=== PATIENT | female | born 1955 | race Caucasian/White ===

== ENCOUNTER → 2017-06-20 | Outpatient (CLI) | payer OTHER ==
--- NOTE | 2017-06-21 10:51 | MM ---
Reason for exam: screening (asymptomatic). Last mammogram was performed 1 year and 2 months ago. History: Patient is postmenopausal. Cancelled Right US Needle Biopsy of the right breast, January 15, 2006. Physical Findings: A clinical breast exam by your physician is recommended on an annual basis and results should be correlated with mammographic findings. MG Screening Mammo w CAD Bilateral CC and MLO view(s) were taken. Prior study comparison: April 17, 2016, bilateral MG 3d screening mammo w/cad. November 17, 2014, bilateral MG screening mammo w CAD. October 15, 2012, bilateral digital screening mammo w/CAD. October 03, 2011, bilateral digital screening mammo w/CAD. September 27, 2010, bilateral digital screening mammogram. The breast tissue is heterogeneously dense. This may lower the sensitivity of mammography. No significant changes when compared with prior studies. ASSESSMENT: Negative, BI-RAD 1 RECOMMENDATION: Routine screening mammogram of both breasts in 1 year.
== END | disposition home or self-care (01) ==
LOC: RADMAMWWP 16:26
PROVIDERS: ATTEND Family Medicine
DX: Z12.31 Encounter for screening mammogram for malignant neoplasm of breast (principal)

== ENCOUNTER → 2018-06-26 | Outpatient (CLI) | payer OTHER ==
--- NOTE | 2018-06-28 09:55 | MM ---
Reason for exam: screening (asymptomatic). Last mammogram was performed 1 year ago. History: Patient is postmenopausal. Cancelled Right US Needle Biopsy of the right breast, January 15, 2006. Physical Findings: A clinical breast exam by your physician is recommended on an annual basis and results should be correlated with mammographic findings. MG Screening Mammo w CAD Bilateral CC and MLO view(s) were taken. Prior study comparison: June 20, 2017, bilateral MG screening mammo w CAD. April 17, 2016, bilateral MG 3d screening mammo w/cad. The breast tissue is heterogeneously dense. This may lower the sensitivity of mammography. No significant changes when compared with prior studies. ASSESSMENT: Benign, BI-RAD 2 RECOMMENDATION: Routine screening mammogram of both breasts in 1 year.
== END | disposition home or self-care (01) ==
LOC: RADMAMWWP 08:18
PROVIDERS: ATTEND Family Medicine
DX: Z12.31 Encounter for screening mammogram for malignant neoplasm of breast (principal)
CPT/HCPCS: 77067

== ENCOUNTER → 2019-04-15 | Outpatient (CLI) | payer MEDICARE ==
--- NOTE | 2019-04-16 09:35 | ECHOS ---
Stress Test Results/Findings: Exam Performed: stress echo exercise Exam Date: 04/15/19 Reason for Exam: ABN EKG Height: 5 ft 7 in Weight: 72.575 kg Protocol: STRESS ECHO Stage: 3 Duration of Exercise: 9:00 MINUTES Resting Heart Rate: 51 Resting Blood Pressure: 124/76 Maximum Achieved Heart Rate: 143 Maximum Achieved Blood Pressure: 208/114 85% PMHR: 132 100% PMHR: 155 METS: 10.3 Technologist Comment: Stress Test Results/Findings: Baseline heart rate 51 beats a minute, Baseline blood pressure 124/76. His mercury Patient exercised on a Benja protocol for 9 minutes achieving a peak heart rate of 143 beats a minute Hypertensive response to exercise the peak blood pressure of 208/114 mmHg Baseline twelve-lead ECG showed sinus rhythm with an abnormal ST segment with downsloping ST depression of 1-1.5 mm in the inferior leads and a [address] depression in V5 and V6 Patient exercised on a Benja protocol for [address] segment abnormalities remained but became more prominent peak exercise and into recovery frequent PVCs were noted at peak exercise No sustained arrhythmias noted The baseline 2-D echo images showed normal LV size and systolic function without any definite segmental wall motion abnormalities While at peak exercise there was no wall motion abnormality noted, the inotropic response was not brisk at peak exercise The inotropic response of the myocardium was fairly brisk at recovery Impression Abnormal ECG at baseline Frequent ventricular ectopy at peak exercise Less than brisk augmentation of overall LV contractility at peak exercise The recovery images showed better contract and function I would suggest either perfusion scanning or coronary angiography Additional CC's: Dorene ONEAL
== END | disposition home or self-care (01) ==
LOC: RADNMMAIN 10:13
PROVIDERS: ATTEND Internal Medicine
DX: R94.31 Abnormal electrocardiogram [ECG] [EKG] (principal)
CPT/HCPCS: 93351

== ENCOUNTER → 2019-04-23 | Outpatient (CLI) | payer MEDICARE, OTHER ==
--- NOTE | 2019-04-23 08:06 | MM ---
Reason for exam: clinical finding. Last mammogram was performed 10 months ago. History: Patient is postmenopausal. Cancelled Right US Needle Biopsy of the right breast, January 15, 2006. Physical Findings: Nurse Summary: 2cm nodule in the left breast at 9 o'clock (nurse maura). MG 3D Diag Mammo W/Cad [facility] Bilateral CC and MLO view(s) were taken. Prior study comparison: June 26, 2018, bilateral MG screening mammo w CAD. June 20, 2017, bilateral MG screening mammo w CAD. The breast tissue is extremely dense which could obscure a lesion on mammography. Benign appearing bilateral calcifications. These results were verbally communicated with the patient and result sheet given to the patient on 04/23/19. ASSESSMENT: Incomplete: need additional imaging evaluation, BI-RAD 0 RECOMMENDATION: Ultrasound of the left breast.
--- NOTE | 2019-04-23 08:07 | USB ---
Reason for exam: additional evaluation requested from abnormal screening. History: Patient is postmenopausal. Cancelled Right US Needle Biopsy of the right breast, January 15, 2006. US Breast Limited LT Left limited breast ultrasound including focal area of concern, retroareolar and axilla demonstrates no cystic or solid lesion seen. These results were verbally communicated with the patient and result sheet given to the patient on 04/23/19. ASSESSMENT: Benign, BI-RAD 2 RECOMMENDATION: Return to routine screening mammogram schedule for both breasts. Manage patient on a clinical basis.
--- NOTE | 2019-04-23 10:29 | BD ---
EXAMINATION TYPE: Axial Bone Density DATE OF EXAM: 04/23/2019 COMPARISON: NONE CLINICAL HISTORY: Postmenopausal female Height: 5 FT 6 IN Weight: 157 FRAX RISK QUESTIONS: History of Fracture in Adulthood: YES RISK FACTORS HISTORY OF: Active: YES Postmenopausal woman: AGE 47 Lost more than 2 inches in height since high school: YES MEDICATIONS: Additional Medications: NONE Additional History: EXAM MEASUREMENTS: Bone mineral densitometry was performed using the [employer] System. Bone mineral density as measured about the Lumbar spine is: ----- L1-L4(G/cm2): 0.911 T Score Values are as follows: ----- L2: -2.7 ----- L3: -1.8 ----- L4: -2.0 ----- L1-L4: -2.[address]'S OFFICE Bone mineral density about the R hip (g/cm2): 0.660 Bone mineral density about the L hip (g/cm2): 0.733 T Score values are as follows: -----R Neck: -2.7 -----L Neck: -2.2 -----R Total: -2.8 -----L Total: -2.[address]'S OFFICE IMPRESSION: Osteoporosis (T Score less than -2.5). There is increased fracture risk and therapy is usually indicated based on age. Re-Screen 1-2 years. NOTE: T-SCORE=SD OF THE YOUNG ADULT MEAN.
== END | disposition home or self-care (01) ==
LOC: RADMAMWWP 06:58
PROVIDERS: ATTEND Internal Medicine
DX: M85.80 Other specified disorders of bone density and structure, unspecified site (principal)
CPT/HCPCS: 77080; 77066; 76642; G0279; 77062

== ENCOUNTER → 2020-08-30 | Outpatient (CLI) | payer MEDICARE ==
--- NOTE | 2020-08-30 18:43 | BD ---
EXAMINATION TYPE: Axial Bone Density DATE OF EXAM: 08/30/2020 COMPARISON: NONE CLINICAL HISTORY: Postmenopausal screening Height: 5 FT 6 IN Weight: 147 FRAX RISK QUESTIONS: Alcohol (3 or more units per day): NO Family History (Parent hip fracture): NO Glucocorticoids (More than 3mos): NO (Ex: prednisone, prednisolone, methylprednisolone, dexamethasone, and hydrocortisone). History of Fracture in Adulthood: YES Secondary Osteoporosis: 1. Type 1 Diabetes: NO 2. Hyperthyroidism: NO 3. Menopause before 45: NO 4. Malnutrition: NO 5. Chronic liver disease: NO Rheumatoid Arthritis: NO Current Tobacco Use: NO RISK FACTORS HISTORY OF: Family History of Osteoporosis: YES Active: YES Diet low in dairy products/other sources of calcium: NO Postmenopausal woman: AGE 47 Take estrogen and/or progesterone medications: NONE Lost more than 2 inches in height since high school: YES MEDICATIONS: Additional Medications: NONE CALCIUM AND VIT D Additional History: EXAM MEASUREMENTS: Bone mineral densitometry was performed using the [employer] System. Bone mineral density as measured about the Lumbar spine is: ----- L1-L4(G/cm2): 0.902 T Score Values are as follows: ----- L2: -2.9 ----- L3: -1.8 ----- L4: -2.0 ----- L1-L4: -2.3 Bone mineral density has: DECREASED -0.8 % since study of: 2018 Bone mineral density about the R hip (g/cm2): 0.676 Bone mineral density about the L hip (g/cm2): 0.717 T Score values are as follows: -----R Neck: -2.6 -----L Neck: -2.3 -----R Total: -2.7 -----L Total: -2.1 Bone mineral density has: INCREASED 2.9 % since study of: 2019 IMPRESSION: Osteoporosis (T Score less than -2.5). There is increased fracture risk and therapy is usually indicated based on age. Re-Screen 1-2 years. NOTE: T-SCORE=SD OF THE YOUNG ADULT MEAN.
--- NOTE | 2020-09-01 10:25 | MM ---
Reason for exam: screening (asymptomatic). Last mammogram was performed 1 year and 4 months ago. History: Patient is postmenopausal. Cancelled Right US Needle Biopsy of the right breast, January 15, 2006. Physical Findings: A clinical breast exam by your physician is recommended on an annual basis and results should be correlated with mammographic findings. MG 3D Screening Mammo W/Cad Bilateral CC and MLO view(s) were taken. Prior study comparison: April 23, 2019, bilateral MG 3d diag mammo w/cad [facility]. June 26, 2018, bilateral MG screening mammo w CAD. The breast tissue is heterogeneously dense. This may lower the sensitivity of mammography. There are benign appearing round calcifications in the right breast. There is no discrete abnormality. ASSESSMENT: Benign, BI-RAD 2 RECOMMENDATION: Routine screening mammogram of both breasts in 1 year.
== END | disposition home or self-care (01) ==
LOC: RADMAMWWP 14:15
PROVIDERS: ATTEND Internal Medicine
DX: Z12.31 Encounter for screening mammogram for malignant neoplasm of breast (principal); M81.0 Age-related osteoporosis without current pathological fracture
CPT/HCPCS: 77063; 77067; 77080

== ENCOUNTER → 2022-03-23 | Outpatient (CLI) | payer MEDICARE ==
--- NOTE | 2022-03-24 08:55 | MM ---
Reason for Exam: Screening (asymptomatic). Last mammogram was performed 1 year(s) and 7 month(s) ago. Patient History: Menarche at age 12. First Full-Term at age 21. Postmenopausal. 01/15/2006, Cancelled Right US Needle Biopsy on the right side. Risk Values: Rosa 5 year model risk: 1.5%. NCI Lifetime model risk: 5.0%. Film Views: Bilateral CC views were taken. Bilateral MLO views were taken. Prior Study Comparison: 06/26/2018 Bilateral Screening Mammogram, [facility]. 04/23/2019 Bilateral Diagnostic Mammogram, [facility]. 08/30/2020 Bilateral Screening Mammogram, [facility]. Tissue Density: The breast tissue is heterogeneously dense. This may lower the sensitivity of mammography. Findings: Analyzed By CAD. There is a single benign-appearing round calcification in the right breast redemonstrated. Benign-appearing right axillary lymph nodes are redemonstrated. With increasing indistinct calcifications middle depth upper aspect left breast. Follow-up advised. Overall Assessment: Incomplete: need additional imaging evaluation, BI-RAD 0 Management: Diagnostic Mammogram of the left breast. A clinical breast exam by your physician is recommended on an annual basis and results should be correlated with mammographic findings. FOLLOW UP NOW. Electronically signed and approved by: Lars Leal M.D.
== END | disposition home or self-care (01) ==
LOC: RADMAMWWP 14:48
PROVIDERS: ATTEND Family Medicine
DX: Z12.31 Encounter for screening mammogram for malignant neoplasm of breast (principal)
CPT/HCPCS: 77063; 77067

== ENCOUNTER → 2022-03-29 | Outpatient (CLI) | payer MEDICARE ==
--- NOTE | 2022-03-29 16:34 | MM ---
Reason for Exam: Additional evaluation requested from abnormal screening. Last screening mammogram was performed less than 1 month ago. Patient History: Menarche at age 12. First Full-Term at age 21. Postmenopausal. 01/15/2006, Cancelled Right US Needle Biopsy on the right side. Risk Values: Rosa 5 year model risk: 1.5%. NCI Lifetime model risk: 5.0%. Film Views: Left CC views were taken. Left MLO views were taken. Prior Study Comparison: 04/23/2019 Bilateral Diagnostic Mammogram, [facility]. 08/30/2020 Bilateral Screening Mammogram, [facility]. 03/23/2022 Bilateral MG 3D screening mammo w/cad, [facility]. Tissue Density: Left: There are scattered fibroglandular densities. Findings: Analyzed By CAD. There are some coarse calcifications in the upper-outer aspect of the left breast. Just anterior to these calcifications are some faint punctate calcifications which are grouped. These are upper outer aspect middle left breast. Biopsy is recommended. Overall Assessment: Suspicious, BI-RAD 4 Management: Stereotactic Core Biopsy of the left breast. Electronically signed and approved by: Demond Sher D.O. Radiologis
== END | disposition home or self-care (01) ==
LOC: RADMAMWWP 14:48
PROVIDERS: ATTEND Family Medicine
DX: R92.8 Other abnormal and inconclusive findings on diagnostic imaging of breast (principal)
CPT/HCPCS: 77065; G0279; 77061

== ENCOUNTER → 2022-04-05 | Day surgery (SDC) | payer MEDICARE ==
[2022-04-05 08:49] VITALS: RESP 16
[2022-04-05 09:52] VITALS: BP 150/89; PULSE 63; TEMP 98.1
--- NOTE | 2022-04-10 09:23 | MM ---
Risk Values: Rosa 5 year model risk: 1.5%. NCI Lifetime model risk: 5.0%. Prior Study Comparison: 08/30/2020 Bilateral Screening Mammogram, [facility]. 03/23/2022 Bilateral MG 3D screening mammo w/cad, [facility]. 03/29/2022 Left MG 3D work up w/cad , [facility]. Pathology Description: Approach: CC FA Needle Type: Eviva Cores: 12 Skin Nicks: 1 Gauge: 9 The procedure of stereotactic guided core biopsy was explained to the patient. Benefits, alternatives, and risks were discussed. An informed consent was then obtained. The shortness pathway for biopsy was chosen. Shortness pathway was superior approach. I performed the localization. A vacuum assisted biopsy gun was used to obtain multiple core samples. The patient tolerated the procedure well without any immediate complication. The patient was kept in the radiology department for short stay after the procedure and then discharged home in stable condition. Targeted calcifications are identified in specimen mammogram. Post biopsy mammogram shows the clip to appear in satisfactory position relative to the targeted area of concern on the preprocedure images. Impression: SUCCESSFUL, UNCOMPLICATED STEREOTACTIC GUIDED CORE BIOPSY OF AREA OF CONCERN IN THE left BREAST. Pathology Results: Result: Benign, Fibrocystic change. LEFT BREAST, STEREOTACTIC CORE BIOPSY: Fibrocystic changes including cysts with calcifications, columnar cell change, apocrine metaplasia and fibrosis. Overall Assessment: Benign Management: Diagnostic Mammogram of the left breast in 6 months. Electronically signed and approved by: Daniel Beltran M.D. Radiologis
== END ==
LOC: RADMAMWWP 08:17
PROVIDERS: ATTEND Family Medicine
DX: N60.12 Diffuse cystic mastopathy of left breast (principal); N60.82 Other benign mammary dysplasias of left breast
CPT/HCPCS: 19081; 88305; A4648; J2001

== ENCOUNTER → 2023-05-10 | Outpatient (CLI) | payer MEDICARE, OTHER ==
--- NOTE | 2023-05-10 10:01 | MM ---
Reason for Exam: Follow-up at short interval from prior study. Last mammogram was performed 1 year(s) and 2 month(s) ago. Patient History: Menarche at age 12. First Full-Term at age 21. Postmenopausal. 04/05/2022, Benign MG stereo VAD BX LT on the left side. 01/15/2006, Cancelled Right US Needle Biopsy on the right side. Risk Values: Rosa 5 year model risk: 1.8%. NCI Lifetime model risk: 5.6%. Tissue Density: The breast tissue is heterogeneously dense. This may lower the sensitivity of mammography. Findings: Analyzed By CAD. Benign-appearing calcifications within the right breast. Biopsy clip within the left breast. No new suspicious masses or group of calcifications within either breast. No architectural distortion within either breast. Overall Assessment: Incomplete: need additional imaging evaluation, BI-RAD 0 Management: Diagnostic Breast Ultrasound of the left breast. A clinical breast exam by your physician is recommended on an annual basis and results should be correlated with mammographic findings. This exam should not preclude additional follow-up of suspicious palpable abnormalities. Results were given to the patient verbally at the time of exam. Note on Rosa scores and lifetime risk: 1. A Rosa score greater than 3% is considered moderate risk. If this is the case, consider specialist referral to assess eligibility for a risk reducing agent. If overall lifetime risk for the development of breast cancer is 20% or higher, the patient may qualify for future screening with alternating mammogram and breast MRI. Electronically signed and approved by: Duke Coffey D.O.
--- NOTE | 2023-05-10 10:19 | USB ---
Reason for Exam: Follow-up at short interval from prior study. Patient History: Menarche at age 12. First Full-Term at age 21. Postmenopausal. 04/05/2022, Benign MG stereo VAD BX LT on the left side. 01/15/2006, Cancelled Right US Needle Biopsy on the right side. Risk Values: Rosa 5 year model risk: 1.8%. NCI Lifetime model risk: 5.6%. Technique: Method: Targeted. Prior Study Comparison: 08/30/2020 Bilateral Screening Mammogram, [facility]. 03/23/2022 Bilateral MG 3D screening mammo w/cad, [facility]. 03/29/2022 Left MG 3D work up w/cad LT, [facility]. Findings: The upper outer quadrant of the left breast, the axilla of the left breast and the retroareolar of the left breast were scanned. Targeted ultrasound of the left breast at site of biopsy 5 cm from the nipple from 12-3 o'clock was performed. Initial evaluation of the maxilla was performed. No solid or cystic lesion was identified. There is some mild ductal ectasia at the nipple. Overall Assessment: Benign, BI-RAD 2 Management: Screening Mammogram of both breasts in 1 year. A clinical breast exam by your physician is recommended on an annual basis and results should be correlated with mammographic findings. This exam should not preclude additional follow-up of suspicious palpable abnormalities. Results were given to the patient verbally at the time of exam. Electronically signed and approved by: Duke Coffey D.O.
== END | disposition home or self-care (01) ==
LOC: RADMAMWWP 09:30
DX: R92.8 Other abnormal and inconclusive findings on diagnostic imaging of breast (principal); Z78.0 Asymptomatic menopausal state
CPT/HCPCS: 77062; 77066

== ENCOUNTER → 2023-06-05 | Outpatient (CLI) | payer MEDICARE ==
--- NOTE | 2023-06-05 15:14 | US ---
EXAMINATION TYPE: US venous doppler duplex UE RT DATE OF EXAM: 06/05/2023 COMPARISON: NONE CLINICAL INDICATION: Female, 68 years old with history of R22.31 SWELLING RUE; lump right elbow SIDE PERFORMED: Right arm FINDINGS: Grayscale, color doppler, spectral doppler imaging performed of the deep veins of the upper extremiti es. There is normal flow, compressibility and vascular waveforms. Right Arm: Negative for DVT. Lump at the elbow corresponds to the brachial artery; scanned left for c omparison. IMPRESSION: 1. No evidence for DVT within the right upper extremity. 2. The graphic design specialist indicates that the brachial artery is seen while scanning at the site of patient's lump at the elbow.
== END | disposition home or self-care (01) ==
LOC: RADUSWWP 14:23
PROVIDERS: ATTEND Internal Medicine Geriatric Medicine
DX: R22.31 Localized swelling, mass and lump, right upper limb (principal)

== ENCOUNTER → 2023-06-21 | Outpatient (CLI) | payer MEDICARE ==
--- NOTE | 2023-06-21 18:30 | XR ---
EXAMINATION TYPE: XR ribs bilat w pa chest xray DATE OF EXAM: 06/21/2023 COMPARISON: NONE HISTORY: Pain TECHNIQUE: Single view of the chest 8 views of the bilateral attending window and ribs are submitted . FINDINGS: The lungs are clear. No Evidence for pneumothorax. No evidence for focal contusion. Medi astinal structures are midline. Evaluation of the ribs fails to demonstrate evidence for displaced r ib fracture or secondary sign of rib fracture. IMPRESSION: Negative study
== END | disposition home or self-care (01) ==
LOC: RADXRMAIN 16:30
PROVIDERS: ATTEND Family Medicine
DX: S20.20XA Contusion of thorax, unspecified, initial encounter (principal); X58.XXXA Exposure to other specified factors, initial encounter
CPT/HCPCS: 71111

== ENCOUNTER → 2024-03-26 | Outpatient (CLI) | payer MEDICARE ==
--- NOTE | 2024-03-27 00:28 | XR ---
EXAMINATION TYPE: XR wrist complete RT DATE OF EXAM: 03/26/2024 COMPARISON: None HISTORY: Pain TECHNIQUE: 4 view right wrist FINDINGS: No acute fractures or dislocations evident. Joint spaces are preserved. Soft tissues appear within normal limits. If there is pain at the anatomic box, nuclear medicine bone scan could be performed for additional ev aluation. Follow up exams can be performed 7-10 days from acute trauma for continued pain. IMPRESSION: 1. No acute osseous abnormality right wrist
== END | disposition home or self-care (01) ==
LOC: RADXRMAIN 14:42
PROVIDERS: ATTEND Internal Medicine Geriatric Medicine
DX: M25.531 Pain in right wrist (principal)

== ENCOUNTER → 2024-03-27 | Outpatient (CLI) | payer MEDICARE | END | disposition home or self-care (01) | LOC: RADMAMWWP 07:28 | PROVIDERS: ATTEND Family Medicine | DX: Z12.31 Encounter for screening mammogram for malignant neoplasm of breast (principal) ==

== ENCOUNTER → 2024-03-28 | Outpatient (CLI) | payer MEDICARE ==
--- NOTE | 2024-03-28 16:37 | XR ---
EXAMINATION TYPE: XR ankle complete LT DATE OF EXAM: 03/28/2024 COMPARISON: None HISTORY: Pain TECHNIQUE: 3 view left ankle FINDINGS: No acute fractures evident. Ankle mortise is intact. Soft tissues appear normal. Follow up exams can be performed 7-10 days from acute trauma for continued pain. IMPRESSION: 1. No acute osseous abnormalities left ankle
== END | disposition home or self-care (01) ==
LOC: RADXRMAIN 14:04
PROVIDERS: ATTEND Family Medicine
DX: M25.572 Pain in left ankle and joints of left foot (principal)

== ENCOUNTER → 2024-06-02 | Outpatient (CLI) | payer MEDICARE ==
--- NOTE | 2024-06-03 10:32 | MM ---
Reason for Exam: Screening (asymptomatic). Last screening mammogram was performed 12 month(s) ago. Patient History: Menarche at age 12. First Full-Term at age 21. Postmenopausal. Patient has history of breast feeding. 04/05/2022, Benign MG stereo VAD BX LT on the left side. 01/15/2006, Cancelled Right US Needle Biopsy on the right side. Risk Values: Rosa 5 year model risk: 1.8%. NCI Lifetime model risk: 5.3%. Prior Study Comparison: 03/23/2022 Bilateral MG 3D screening mammo w/cad, [facility]. 03/29/2022 Left MG 3D work up w/cad LT, [facility]. 05/10/2023 Bilateral MG 3D diag mammo w/cad [facility], [facility]. Tissue Density: The breasts are heterogeneously dense, which may obscure small masses. Findings: Analyzed By CAD. There is no suspicious group of microcalcifications or new suspicious mass in either breast. Overall Assessment: Benign, BI-RAD 2 Management: Screening Mammogram of both breasts in 1 year. . Patient should continue monthly self-breast exams. A clinical breast exam by your physician is recommended on an annual basis. This exam should not preclude additional follow-up of suspicious palpable abnormalities. Note on Rosa scores and lifetime risk: 1. A Rosa score greater than 3% is considered moderate risk. If this is the case, consider specialist referral to assess eligibility for a risk reducing agent. 2. If overall lifetime risk for the development of breast cancer is 20% or higher, the patient may qualify for future screening with alternating mammogram and breast MRI. Electronically signed and approved by: Victor Manuel De La Rosa M.D. Radiologis
== END | disposition home or self-care (01) ==
LOC: RADMAMWWP 16:07
PROVIDERS: ATTEND Family Medicine
DX: Z12.31 Encounter for screening mammogram for malignant neoplasm of breast (principal); R92.333 Mammographic heterogeneous density, bilateral breasts; Z78.0 Asymptomatic menopausal state
CPT/HCPCS: 77063; 77067